=== PATIENT | female | born 1975 | race Caucasian/White ===

== ENCOUNTER 2022-06-30 08:25 | Day surgery (SDC) | payer BC ==
[~2022-06-30 08:25] MED LIST: Lactated Ringers 1,000 ML IV SCH; Lidocaine 1%/Sod Bicarbonate in NS 8.4% 1 ML Syringe IDERM PRN; Sodium Chloride 0.9% 10 ML Syringe FLUSH PRN; Sodium Chloride 0.9% 10 ML Syringe FLUSH SCH
[2022-06-30] MEDS ORDERED: Lidocaine 1% 2 ML ONE (09:16)
[2022-06-30] MEDS ORDERED: fentaNYL 100 MCG/2 ML SDV ONE (09:16)
[2022-06-30] MEDS ORDERED: Ondansetron 4 MG/2 ML SDV ONE (09:16)
[2022-06-30] MEDS ORDERED: Propofol 200 MG/20 ML SDV ONE (09:16)
[2022-06-30] MEDS ORDERED: ceFAZolin 2 GM Vial ONE (10:00)
[2022-06-30] MEDS ORDERED: fentaNYL 100 MCG/2 ML SDV IVPUSH PRN (10:26)
[2022-06-30] MEDS ORDERED: Ondansetron 4 MG/2 ML SDV IVPUSH PRN (10:26)
[2022-06-30] MEDS ORDERED: HYDROmorphone 0.5 MG/0.5 ML Syringe IVPUSH PRN (10:26)
[2022-06-30] MEDS ORDERED: Ibuprofen 600 MG Tab PO PRN (10:44)
[2022-06-30] MEDS ORDERED: Ibuprofen 600 MG Tab PO ONE (11:00)
[2022-06-30 11:15] VITALS: BP 148/88; PULSE 77
== END 2022-06-30 11:30 | disposition home or self-care (01) ==
LOC: JD.SDS 08:25
PROVIDERS: ATTEND Obstetrics & Gynecology
DX: N92.0 Excessive and frequent menstruation with regular cycle (principal); N93.9 Abnormal uterine and vaginal bleeding, unspecified; E66.9 Obesity, unspecified; F17.210 Nicotine dependence, cigarettes, uncomplicated; Z68.38 Body mass index [BMI] 38.0-38.9, adult; Z98.890 Other specified postprocedural states
CPT/HCPCS: 36415; 80053; 81025; 85025; A9270-GY; J0690; J2405; J2704; J3010; J3490; J7120

== ENCOUNTER 2022-10-06 07:23 | Day surgery (SDC) | payer BC ==
[2022-10-06] MEDS ORDERED: Bupivacaine 0.5% 30 ML SDV ONE (07:39)
[2022-10-06] MEDS ORDERED: Bupivacaine 0.25%/EPINEPHrine 1:200,000 30 ML SDV ONE (07:40)
[2022-10-06] MEDS ORDERED: Ondansetron 4 MG/2 ML SDV IVPUSH PRN ×2 (07:47→11:25)
[2022-10-06] MEDS ORDERED: fentaNYL 100 MCG/2 ML SDV IVPUSH PRN ×2 (07:47→11:25)
[2022-10-06] MEDS ORDERED: HYDROmorphone 0.5 MG/0.5 ML Syringe IVPUSH PRN ×2 (07:47→11:25)
[2022-10-06 07:57] LABS: BASOPHILS ABSOLUTE AUTO 0.02 K/mm3 (0.01-0.08); BASOPHILS PERCENT AUTO 0.2 % (0.1-1.2); EOSINOPHILS PERCENT AUTO 1.2 (0.7-5.8); HEMATOCRIT 38.1 % (34.1-44.9); HEMOGLOBIN 12.4 gm/dl (11.2-15.7); IMMATURE GRAN ABSOLUTE AUTO 0.01 K/mm3 (0.00-0.10); IMMATURE GRAN PERCENT AUTO 0.1 % (<=1.0); LYMPHOCYTES ABSOLUTE AUTO 2.88 K/mm3 (1.18-3.74); LYMPHOCYTES PERCENT AUTO 35.6 % (19.3-51.7); MEAN CORPUSCULAR HEMOGLOBIN 30.2 pg (25.6-32.2); MEAN CORPUSCULAR HGB CONC 32.5 g/dl (32.2-35.5); MEAN CORPUSCULAR VOLUME 92.7 fl (79.4-94.8); MEAN PLATELET VOLUME 9.1 fl (9.4-12.3); MONOCYTES ABSOLUTE AUTO 0.47 K/mm3 (0.24-0.36); MONOCYTES PERCENT AUTO 5.8 % (4.7-12.5); NEUTROPHILS ABSOLUTE AUTO 4.61 K/mm3 (1.56-6.13); NEUTROPHILS PERCENT AUTO 57.1 % (34.0-71.1); PLATELET COUNT,PLT 384 K/mm3 (182-369); RED BLOOD CELL COUNT 4.11 M/mm3 (3.98-5.22); WHITE BLOOD CELL COUNT,WBC 8.09 K/mm3 (3.98-10.04)
[2022-10-06] MEDS ORDERED: fentaNYL 250 MCG/5 ML SDV ONE (10:10)
[2022-10-06] MEDS ORDERED: Lidocaine 1% 4 ML ONE (10:10)
[2022-10-06] MEDS ORDERED: Rocuronium 50 MG/5 ML Vial ONE ×2 (10:10→10:59)
[2022-10-06] MEDS ORDERED: Propofol 200 MG/20 ML SDV ONE (10:10)
[2022-10-06] MEDS ORDERED: ceFAZolin 2 GM Vial ONE (10:30)
[2022-10-06] MEDS ORDERED: ePHEDrine 50 MG/ML SDV ONE (10:31)
[2022-10-06] MEDS ORDERED: Phenylephrine 1% 10 MG/ML SDV ONE (10:37)
[2022-10-06] MEDS ORDERED: Ondansetron 4 MG/2 ML SDV ONE (10:46)
[2022-10-06] MEDS ORDERED: Dexamethasone 4 MG/ML 5 ML MDV ONE (10:46)
[2022-10-06] MEDS ORDERED: Ketorolac 30 MG/ML SDV ONE (10:46)
[2022-10-06] MEDS ORDERED: Sugammadex Sodium 200 MG/2 ML VIAL ONE (11:43)
[2022-10-06] MEDS ORDERED: Acetaminophen/oxyCODONE 325-5 MG Tab PO PRN (12:41)
== END 2022-10-06 13:43 | disposition home or self-care (01) ==
LOC: JD.SDS 07:23
PROVIDERS: ATTEND Obstetrics & Gynecology
DX: N80.03 Adenomyosis of the uterus (principal); N83.8 Other noninflammatory disorders of ovary, fallopian tube and broad ligament; I10 Essential (primary) hypertension; E78.1 Pure hyperglyceridemia; E66.9 Obesity, unspecified; F17.210 Nicotine dependence, cigarettes, uncomplicated; G47.33 Obstructive sleep apnea (adult) (pediatric); Z79.899 Other long term (current) drug therapy; Z98.890 Other specified postprocedural states; Z68.39 Body mass index [BMI] 39.0-39.9, adult; Z90.49 Acquired absence of other specified parts of digestive tract
CPT/HCPCS: 36415; 58552; 81025; 85025; A9270; J0690; J1100; J1885; J2370; J2405; J2704; J3010; J3490; J7120; 00944; 00952